=== PATIENT | male | born 1955 | race Two or more races ===

== ENCOUNTER 2021-07-12 16:49 | Inpatient (IN) | payer SELFPAY ==
[~2021-07-12] VITALS: Ht 172.7 cm; Wt 81.6 kg
[2021-07-12] MEDS ORDERED: ADENOSINE 6 MG/2 ML INJ IV ONE ×3 (17:31→18:15)
[2021-07-12] MEDS ORDERED: DEXTROSE (50%) 50ML SYRG IV ONE ×2 (18:15→22:30)
[2021-07-12 18:54] LABS: Urine Bacteria NONE SEEN /hpf (None Seen); Urine Blood TRACE /uL (Negative); Urine Hyaline Cast MANY /lpf (0 - 2); Urine Mucus FEW (None Seen); Urine WBC 1 /hpf (0 - 3)
[2021-07-12 18:58] LABS: Albumin 1.5 g/dL (3.4-5.0); Anion Gap 22 (5-15); BUN/Creatinine Ratio 9.1; Blood Alcohol < 3.0 mg/dL (0-5); Blood Urea Nitrogen 14 mg/dL (7-18); Calcium 7.4 mg/dL (8.5-10.1); Carbon Dioxide 10 mmol/L (21-32); Chloride 109 mmol/L (98-107); GFR African American 58 mL/min; GFR Non-African American 48 mL/min; Glucose 89 mg/dL (74-106); Lipase 38 U/L (73-393); Magnesium 1.9 mg/dL (1.6-2.6); Potassium 3.3 mmol/L (3.5-5.1); Sodium 141 mmol/L (136-145)
[2021-07-12 19:02] LABS: Alanine Aminotransferase 50 U/L (16-61); Alkaline Phosphatase 115 U/L (45-117); Aspartate Aminotransferase 126 U/L (15-37); Bilirubin, Total 10.1 mg/dL (0.2-1.0); Total Protein 5.5 g/dL (6.4-8.2)
[2021-07-12 19:11] LABS: Basophils # (auto) 0 10 ^3/uL (0-0.2); Eosinophils # (auto) 0 10 ^3/uL (0-0.8); Hemoglobin 12.1 g/dL (13.5-17.5); Lactic Acid w/Reflex 14.7 mmol/L (0.4-2.0); Monocytes # (auto) 0 10 ^3/uL (0-1.3); Neutrophils # (auto) 0.3 10 ^3/uL (1.6-8.6)
[2021-07-12 19:13] LABS: Basophils % (auto) 0.7 % (0.0-2.0); Eosinophils % (auto) 1.7 % (0.0-7.0); Hematocrit 36.2 % (41.0-53.0); Lymphocytes # (auto) 0 10 ^3/uL (0.4-5.4); Lymphocytes % (auto) 12.3 % (10.0-50.0); Mean Corpuscular Hemoglobin 35.9 pg (28.0-32.0); Mean Corpuscular Hgb Conc. 33.5 g/dL (32.0-36.0); Mean Corpuscular Volume 107.1 fL (80.0-100.0); Monocytes % (auto) 1.6 % (0.0-12.0); Neutrophils % (auto) 83.7 % (37.0-80.0); Red Blood Cells 3.38 10^6/uL (4.5-5.90); Red Cell Distribution Width 17.2 % (11.8-14.3)
[2021-07-12 19:16] LABS: INR 2.85 (0.9-1.15)
[2021-07-12] MEDS ORDERED: VANCOMYCIN 1GM/250ML 250 ML IV ONE (19:45)
[2021-07-12] MEDS ORDERED: SODIUM CHLORIDE 0.9% 1,000 ML IV ONE (19:45)
[2021-07-12] MEDS ORDERED: PIPERACILLIN-TAZOB 3.375GM 100 ML IV ONE (19:45)
[2021-07-12] MEDS ORDERED: NOREPINEPHRINE 8 MG/250ML KIT 250 ML IV SCH (21:00)
[2021-07-12] MEDS ORDERED: NOREPINEPHRINE 8 MG/250ML KIT 250 ML IV ONE (21:01)
[2021-07-12 21:04] LABS: White Blood Cell 0.4 10^3/uL (4.4-10.8)
[2021-07-12] MEDS: POTASSIUM CHL 20MEQ/100ML 100 ML IV SCH (21:15)
[2021-07-12] MEDS ORDERED: ETOMIDATE (2MG/ML) 20ML VIAL IV ONE (21:24)
[2021-07-12] MEDS ORDERED: SUCCINYLCHOLINE CHLORIDE 20 MG/ML 10ML VIAL IV ONE (21:24)
[2021-07-12] MEDS ORDERED: FILGRASTIM(TBO) 480 MCG/0.8 ML SYRG SC ONE (21:30)
[2021-07-12] MEDS ORDERED: ONDANSETRON HCL 4 MG/2 ML VIAL IV PRN (21:30)
[2021-07-12] MEDS ORDERED: SODIUM BICARBONATE 50ML VIAL 100 ML in SOD CHL 0.45% 1,000 ML IV SCH (21:30)
[2021-07-12] MEDS ORDERED: ALBUMIN 5% 250 ML IV ONE (21:30)
[2021-07-12] MEDS ORDERED: MORPHINE SULFATE INJECTION 2 MG/ML SYRG IV PRN (21:30)
[2021-07-12] MEDS ORDERED: SODIUM BICARBONATE 8.4 % INJ 50ML VIAL IV ONE (21:30)
[2021-07-12] MEDS ORDERED: NITROGLYCERIN 0.4 MG SL TAB SL PRN (21:30)
[2021-07-12] MEDS ORDERED: VASOPRESSIN 50 UNITS in D5W 5% 247.5 ML IV SCH (21:30)
[2021-07-12] MEDS ORDERED: VANCOMYCIN PER PHARMACY 0 MG IV SCH (21:30)
[2021-07-12] MEDS ORDERED: ALBUMIN 25% 100 ML IV ONE (21:45)
[2021-07-12] MEDS ORDERED: PANTOPRAZOLE 40 MG/10 ML VIAL INJ IV SCH (22:00)
[2021-07-12] MEDS ORDERED: PROPOFOL 10 MG/ML 20 ML IV ONE (22:30)
[2021-07-12] MEDS ORDERED: MIDAZOLAM DRIP 50 mg/50mL 50 ML IV SCH (22:30)
[2021-07-12] MEDS ORDERED: ACCU-CHEK COMFORT CURVE STRIP VI SCH (23:00)
[2021-07-13 00:18] VITALS: BP 121/86
[2021-07-13] MEDS: POTASSIUM CHL 20MEQ/100ML 100 ML IV SCH (00:40)
[2021-07-13] MEDS ORDERED: DEXTROSE 50% SYRINGE 0 ML IV ONE (00:54)
[2021-07-13] MEDS ORDERED: DEXTROSE 50% SYRINGE 100 ML IV ONE (00:56)
[2021-07-13] MEDS ORDERED: SODIUM BICARBONATE 8.4% INJ 50ML SYRINGE ONE (00:57)
[2021-07-13 01:00] VITALS: BP 71/41
[2021-07-13] MEDS ORDERED: SODIUM BICARBONATE 8.4% INJ 50ML SYRINGE IV ONE (01:03)
[2021-07-13] MEDS ORDERED: DEXTROSE (50%) 50ML SYRG IV ONE (01:03)
[2021-07-13] MEDS ORDERED: EPINEPHrine HCL 1 MG/10 ML SYRG IV ONE (01:03)
[2021-07-13] MEDS ORDERED: LACTULOSE 20Gm/30ML SOLN PO SCH (02:00)
[2021-07-13] MEDS ORDERED: cefTRIAXone 1GM/50ML D5W 50 ML IV SCH (09:00)
== END 2021-07-13 01:04 | DRG 871 ==
LOC: EDBD 16:49 → ER 16:49 → TELE 21:20
PROVIDERS: ADMIT Nurse Practitioner; ATTEND Nurse Practitioner
PROC: 5A12012 Performance of Cardiac Output, Single, Manual (ICD-10-PCS; principal; 2021-07-12)
PROC: 06HN33Z Insertion of Infusion Device into Left Femoral Vein, Percutaneous Approach (ICD-10-PCS; 2021-07-12)
PROC: 5A12012 Performance of Cardiac Output, Single, Manual (ICD-10-PCS; 2021-07-13)
DX: A41.9 Sepsis, unspecified organism (principal); R65.21 Severe sepsis with septic shock; I46.9 Cardiac arrest, cause unspecified; K72.90 Hepatic failure, unspecified without coma; K74.60 Unspecified cirrhosis of liver; F17.210 Nicotine dependence, cigarettes, uncomplicated; M54.9 Dorsalgia, unspecified; Z20.822 Contact with and (suspected) exposure to COVID-19
CPT/HCPCS: 31500; 36415; 36556; 36600; 71045; 74176; 80053; 80320; 81001; 82140; 82805; 83605; 83690; 83735; 83880; 84484; 85025; 85379; 85610; 87040; 87070; 87077; 87186; 87205; 87426; 92950; 93005; 94002; 96365; 96368; 96375; 99291; G0378; J0153; J0330; J2250; J2543; J3480; J7060